=== PATIENT | male | born 1980 | race Two or more races ===

== ENCOUNTER 2023-10-27 21:28 | Emergency (ER) | payer OTHER ==
[~2023-10-27] VITALS: Ht 180.3 cm; Wt 64.5 kg
[2023-10-27 22:00] VITALS: BP 116/77; PULSE 86; RESP 18; O2SAT 96
[2023-10-28] MEDS: HYDROcodone-ACET 5/325MG TAB PO ONE (02:22)
== END 2023-10-28 02:40 | disposition home or self-care (01) ==
LOC: ER 21:28
DX: S61.307A Unspecified open wound of left little finger with damage to nail, initial encounter (principal); E78.5 Hyperlipidemia, unspecified; I10 Essential (primary) hypertension; F17.210 Nicotine dependence, cigarettes, uncomplicated; W22.8XXA Striking against or struck by other objects, initial encounter; Y93.89 Activity, other specified; Y92.69 Other specified industrial and construction area as the place of occurrence of the external cause; Y99.8 Other external cause status
CPT/HCPCS: 73130